=== PATIENT | female | born 1965 | race Caucasian/White ===

== ENCOUNTER 2021-10-26 09:19 | Outpatient (CLI) | payer BC | END 2021-10-26 09:20 | disposition home or self-care (01) | LOC: NM 09:19 | PROVIDERS: ATTEND Internal Medicine Gastroenterology | DX: Z12.11 Encounter for screening for malignant neoplasm of colon (principal); R10.13 Epigastric pain; R19.4 Change in bowel habit | CPT/HCPCS: 78227; A9537 ==

== ENCOUNTER 2022-08-05 07:58 | Outpatient (CLI) | payer BC | END 2022-08-05 07:59 | disposition home or self-care (01) | LOC: NM 07:58 | PROVIDERS: ATTEND Physician Assistant Medical | DX: R11.2 Nausea with vomiting, unspecified (principal) | CPT/HCPCS: 78264; A9541 ==